=== PATIENT | male | born 1940 | race African-American/Black ===

== ENCOUNTER 2017-03-04 16:29 | Emergency (ER) | payer MEDICARE, BC ==
[2017-03-04] MEDS ORDERED: Morphine INJ* 2 MG/ML 1 ML CARPUJECT IV ONE (18:04)
[2017-03-04] MEDS ORDERED: NS 0.9% 1000 ML* 1,000 ML IV SCH (18:15)
[2017-03-04 18:21] LABS: Hematocrit 39 % (42-52); Hemoglobin 13.2 g/dl (14.0-18.0); Mean Corpuscular HGB Conc 34 g/dl (31-36); Mean Corpuscular Hemoglobin 32 pg (27-31); Mean Corpuscular Volume 94 fL (80-94); Mean Platelet Volume 8 um3 (7.4-10.4); Red Blood Count 4.15 10^6/ul (4.0-5.4); Red Cell Distribution Width 15 % (10.5-15); White Blood Count 13.2 10^3/ul (3.5-10.8)
[2017-03-04 18:35] LABS: Albumin 3.9 g/dL (3.2-5.2); BUN/Creatinine Ratio 11.9 (8-20); Calcium 9.3 mg/dL (8.6-10.3); EGFR Non-African American 66.1 (>60); Globulin 3.4 g/dL (2-4); Total Bilirubin 0.3 mg/dL (0.2-1.0); Total Protein 7.3 g/dL (6.4-8.9)
[2017-03-04 18:37] LABS: Troponin I 0.01 ng/mL (<0.04)
[2017-03-04] MEDS ORDERED: D5NS 0.9% 1000 ML BAG* 1,000 ML IV SCH (19:00)
[2017-03-04 19:35] LABS: Urine Bacteria Absent (Absent); Urine Bilirubin Negative (Negative); Urine Glucose Negative (Negative); Urine Nitrite Negative (Negative)
[2017-03-04 19:37] LABS: Potassium 3.6 mmol/L (3.5-5.0)
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
[2017-03-04] MEDS ORDERED: traMADol TAB* 50 MG PO ONE (20:35)
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
[2017-03-04 20:59] VITALS: BP 165/75
== END 2017-03-04 21:00 ==
LOC: ED 16:29
DX: E16.2 Hypoglycemia, unspecified (principal); Z04.1 Encounter for examination and observation following transport accident
CPT/HCPCS: 36415; 71250; 74176; 80053; 81003; 81015; 84484; 85025; 93005; 99283; A9270-GY; J2270